=== PATIENT | male | born 1960 | race Two or more races ===

== ENCOUNTER 2022-02-04 11:34 | Emergency (ER) | payer MEDICARE, OTHER ==
[~2022-02-04] VITALS: Ht 170.2 cm; Wt 95.3 kg
--- NOTE | 2022-02-04 11:41 | NUR ---
[id number] C/O LOW BP 75/47 ON SCENE, GIVEN 200ML OF FLUIDS, BP 100/66 UPON ARRIVAL. ATTACHED TO MONITOR. BLOOD GLUCOSE 115 UPON ARRIVAL. PT IS a&OX4. DR AMADOR AT BEDSIDE, AWAITING ORDERS.
[2022-02-04] MEDS ORDERED: IV NS 0.9% 1,000 ML BAG IV ONE (12:00)
[2022-02-04 12:19] LABS: BASOPHILS % (AUTO) 0.3 % (0.0-2.0); HEMATOCRIT 38 % (39-51); HEMOGLOBIN 12.5 g/dL (13.5-17.5); LYMPHOCYTES % (AUTO) 13.7 % (20.0-44.0); MEAN CORPUSCULAR HGB CONC 33 g/dl (31.0-36.0); MEAN CORPUSCULAR VOLUME 95 fL (80-96); MONOCYTES # (AUTO) 1.1 K/uL (0.1-1.30); MONOCYTES % (AUTO) 14.7 % (2.0-12.0); NEUTROPHILS % (AUTO) 68.3 % (43.0-81.0); PLATELET COUNT (AUTO) 278 K/uL (150-450); RED BLOOD CELL COUNT(AUTO) 3.96 MIL/uL (4.5-6.0); WHITE BLOOD COUNT (AUTO) 7.4 K/uL (4.3-11.0)
[2022-02-04 12:44] LABS: CALCIUM, SERUM 8.5 mg/dL (8.5-10.1); CREATININE 1.3 mg/dL (0.6-1.3)
--- NOTE | 2022-02-04 13:27 | NUR ---
URINE COLLECTED AND SENT
[2022-02-04] MEDS ORDERED: POTASSIUM CHLORIDE 20 MEQ TAB.PRT.SR PO ONE ×2 (14:00→14:24)
--- NOTE | 2022-02-04 14:53 | NUR ---
THE PATIENT IS ACCEPTED TO [facility] [id number], [place] [id number]
--- NOTE | 2022-02-04 15:03 | NUR ---
[facility] TRANSPORT ETA 90 MINS.
--- NOTE | 2022-02-04 16:54 | NUR ---
TRANSPORTATION ARRIVED, PT TRANSFERRED TO BOARDING FACILITY IN STABLE CONDITION.
[2022-02-04 16:58] VITALS: BP 119/69
== END 2022-02-04 16:59 | disposition home or self-care (01) ==
LOC: ER 11:37
DX: R55 Syncope and collapse (principal); F15.10 Other stimulant abuse, uncomplicated; E87.6 Hypokalemia; E86.0 Dehydration; I10 Essential (primary) hypertension; E78.5 Hyperlipidemia, unspecified; Z88.8 Allergy status to other drugs, medicaments and biological substances
CPT/HCPCS: 99285; 96360; 93005; 71045; 85025; 80048; 36415; 82962; 80320; 80307; J7030; G0480